=== PATIENT | female | born 1955 | race Caucasian/White ===

== ENCOUNTER 2017-08-16 08:54 | Emergency (ER) | payer OTHER ==
[2017-08-16] MEDS: ALBUTEROL/IPRATROPIUM (NEB) 3 ML AMP HHN (10:18)
[2017-08-16] MEDS: METHYLPREDNISOLONE 125 MG INJ IV (10:22)
[2017-08-16] MEDS: SOD CHLORIDE 0.9% 1,000 ML IV (10:22)
== END 2017-08-16 12:30 | disposition home or self-care (01) ==
LOC: FTE 08:54
DX: J20.9 Acute bronchitis, unspecified (principal)
CPT/HCPCS: 71046; 94664; 96374; 99284-25